=== PATIENT | female | born 1940 | race Caucasian/White ===

== ENCOUNTER → 2017-07-18 | Outpatient (CLI) | payer MEDICARE, BC ==
[~2017-07-18] MED LIST: ALLEGRA D; ATENOLOL; B-12; B-6; CALCIUM; CELEBREX; FLUTICASONE; PREMARIN; SYNTHROID; TESSALON PERLE100 M1; TRAMADOL100 MG; TRIAM/HCTZ; VITAMIN C; Z TRAMADOL HCL; Z.0.GABAPENTIN100 MG PO; Z.0.HYDROXYZINE HCL2 PO; Z.0.LEVOTHYROXINE100; Z.0.VITAMIN D3 1,01 PO; [UNRECOGNIZED DRUG - OTHER]; [UNRECOGNIZED DRUG - OTHER] PO
== END ==
LOC: MRI 10:44
PROVIDERS: ATTEND Family Medicine
DX: M47.816 Spondylosis without myelopathy or radiculopathy, lumbar region (principal)

== ENCOUNTER 2020-02-10 16:02 | Emergency (ER) | payer MEDICARE, BC ==
[~2020-02-10] VITALS: Ht 165.1 cm; Wt 118.8 kg
--- OUTSIDE RECORDS SUMMARY | 2020-02-10 16:26 | XMS REPORT | Continuity of Care Document ---
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 Name Role Phone [employer] Unavailable Un available Problems Problem Status Onset Date Classification Date Reported Comments Source Psoriatic arthritis Active Problem 07/12/2019 Sunil Burns Encounter for drug therapy Act rupinder Diagnosis 0 12/26/2018 Sunil Burns Medications Medication Details Route Status Patient Instructions Ordering Provider Order Date Source Methotrexate 8 tabs Orally Active 2.5mg Orally Once a wee k Amalia 07/23/2018 Sunil Burns Folic Acid 1 tablet Orally Active 1 MG Orally Once a day Amalia 05/02/2018 Sunil Burns Methotrexate 8 tablets all tog ether Orally Active 2.5mg Orally Once a week Amalia 05/02/2018 Sunil Burns Amlodipine Besylate 1 tablet Orally Active 5 MG Orally Once a day Amalia Sunil Burns Tramadol HCl 1 tablet as needed Orally Active 50 MG Orally every 6 hrs Amalia Sunil Burns Meloxicam 1 tablet Orally Active 7.5 MG Orally bid Amalia Kevin Burns Anoro Ellipta 1 puff Inhalation Active 62.5-25 MCG/INH Inhalat ion Once a day Amalia Sunil Burns Losartan Potassium 1 tablet Orally Active 100 MG Orally Once a day Amalia Sunil Burns Mucinex Chest Congestion Child 10 ml as needed Orally Active 100 MG/5ML Orally every 4 hrs Amalia Sunil Burns Lyrica 1 capsule Orally Active 100 MG Orally Three chary es a day Amalia Sunil Burns Otezla 30 mg orally Active 10mg orally bid Amalia Kevin Burns Folic Acid TAKE 1 TABLET BY MO UTH EVERY DAY NA Active 1 MG Amalia Kevin Burns Tizanidine HCl 1 tablet as nee ded Orally Active 4 MG Orally Three times a day Amalia Sunil Burns Triamterene-HCTZ 1 tablet in morning Orally Active 37.5-25 MG Orally Once a day Amalia Sunil Burns Metoprolol Tartrate 1 tablet w ith food Orally Active 25 MG Orally Twice a day Amalia Sunil Burns Pantoprazole Sodium 1 tablet Orally Active 40 MG Orally Once a day Amalia Sunil Burns Nasacort AQ 1 spray in each no stril Nasally Active 55 MCG/ACT Nasally Once a day Amalia Sunil Burns Chlorzoxazone 1 tablet Orally Active 500 MG Orally Three chary es a day Amalia Sunil Burns Levothyroxine Sodium 1 tablet on an empty stomach in the morning Orally Active 150 MCG Orally Once a day Yous af Sunil Burns Montelukast Sodium 1 tablet Orally Active 10 MG Orally Once a day Amalia Sunil Burns Allergies, Adverse Reactions, Alerts Substance Category Reaction Severity Reaction type Status Date Reported Comments Source N.K.D.A. Adverse Reaction Info Not Available Adverse Reaction 09/12/2018 Sunil Burns Immunizations No Data Provided for This Section Results No Data Provided for This Section Pathology Reports No Data Provided for This Section Diagnostic Reports No Data Provided for This Section Consultation Notes No Data Provided for This Section Discharge Summaries No Data Provided for This Section History and Physicals No Data Provided for This Section Vital Signs Vital Sign Value Date Comments Source Weight 254 09/12/2018 Sunil Burns Height 64 0 09/12/2018 Sunil Burns Temperature Oral (F) 99.4 F 09/12/2018 Sunil Burns Heart Rate 76 09/12/2018 Sunil Burns Diastolic (mm Hg) 68 09/12/2018 Sunil Burns Systolic (mm Hg) 140 09/12/2018 Sunil Burns Weight 264.4 06/20/2018 Sunil Nielsener Height 64 0 06/20/2018 Sunil Burns Temperature Oral (F) 98.9 F 06/20/2018 Sunil Burns Heart Rate 74 06/20/2018 Sunil Burns Diastolic (mm Hg) 70 06/20/2018 Sunil Burns Systolic (mm Hg) 130 06/20/2018 Sunil Burns Encounters No Data Provided for This Section Procedures No Data Provided for This Section Assessment and Plan No Data Provided for This Section Plan of Care No Data Provided for This Section Social History No Data Provided for This Section Family History No Data Provided for This Section Advance Directives No Data Provided for This Section Functional Status No Data Provided for This Section
[2020-02-10 16:43] LABS: BASOPHILS # (AUTO) 0.1 (0.0-0.1); BASOPHILS % 0.5 % (0.0-1.0); EOSINOPHILS # (AUTO) 0.3 (0.0-0.4); EOSINOPHILS % 2.1 % (0.0-6.0); HEMATOCRIT 34.1 % (34.2-44.1); HEMOGLOBIN 10.3 g/dL (12.0-16.0); LYMPHOCYTES % 8.5 % (18.0-39.1); MEAN CORPUSCULAR HEMOGLOBIN 28.2 pg (28-32); MEAN CORPUSCULAR HGB CONC 30.2 g/dL (31-35); MEAN CORPUSCULAR VOLUME 93.4 fL (81-99); MONOCYTES # (AUTO) 0.7 (0.2-0.8); MONOCYTES % 5.9 % (4.4-11.3); NEUTROPHILS % 82.7 % (38.7-80.0); PLATELET COUNT 240 x10e3/uL (140-360); RED BLOOD COUNT 3.65 x10e6/uL (3.6-5.1); RED CELL DISTRIBUTION WIDTH 15.8 % (11.7-14.4)
[2020-02-10 16:59] LABS: ALBUMIN 3.2 g/dL (3.5-5.0); ALBUMIN/GLOBULIN RATIO 0.8 (0.8-2.0); ANION GAP 14.7 mmol/L (8-16); CREATININE, SERUM 1.33 mg/dL (0.57-1.11); POTASSIUM 3.7 mmol/L (3.5-5.1)
[2020-02-10 17:05] LABS: CREATINE KINASE MB 3.1 ng/mL (0-5.0)
--- NOTE | 2020-02-10 18:32 | Emergency Department Note ---
History of Present Illnes History of Present Illness Chief Complaint: General Medicine Complaints History of Present Illness This is a 79 year old female reports of feeling shaky for the last 2 days. Patient was recently at [facility] for a heart valve replacement and later was cardioverted for an abnormal heart rhythm. Patient reports she was discharged on 02/07/2020 which was the same day they did the cardioversion. Patient has been on home oxygen since May due to the heart valve leaking. Since the valve replacement her breathing has not improved. Patient's oxygen saturation is 92% on 4L of oxygen via Nasal Cannula.. denies fever and chills, denies cough, denies urinary symptoms denies chest pain . Historian: Patient Arrival Mode: Car Endorsement Clerk Required: No Onset (how long ago): day(s) (2) Location: all over Quality: feels shaky Severity: moderate Onset quality: sudden Duration (how long): day(s) (2) Timing of current episode: constant Progression: unchanged Chronicity: new Context: Reports recent surgery (heart valve replacement 2 weeks ago, cardioversion on 02/07/20) Relieving factors: none Exacerbating factors: none Associated symptoms: Reports shortness of breath (chronic since may) Treatments prior to arrival: none Past Medical/Family History Physician Review I have reviewed the patient's past medical and family history. Any updates have been documented here. 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 Social History Smoking Cessation: Never Smoker Counseling Performed: No Alcohol Use: None Any Illegal Drug Use: No Other Any Pre-Existing Lines (PICC,: No Review of Systems Review of Systems Constitutional: Reports no symptoms EENTM: Reports no symptoms Cardiovascular: Reports no symptoms Respiratory: Reports as per HPI Gastrointestinal: Reports no symptoms Genitourinary: Reports no symptoms Musculoskeletal: Reports no symptoms Integumentary: Reports no symptoms Neurological: Reports as per HPI Psychological: Reports no symptoms Endocrine: Reports no symptoms Hematological/Lymphatic: Reports no symptoms Physical Exam Related Data Allergies: Coded Allergies: codeine (Verified Allergy, NAUSEA, VOMITING, 09/15/11) Triage Vital Signs Vital Signs Date Time Temp Pulse Resp B/P (MAP) Pulse Ox O2 Delivery O2 Flow Rate FiO2 02/10/20 16:10 98.7 70 22 130/70 92 Nasal Cannula 4.0 Vital signs reviewed: Yes Physical Exam CONSTITUTIONAL Constitutional: Present well-developed, Present well-nourished HENT HENT: Present normocephalic, Present atraumatic, Present oropharynx clear/moist, Present nose normal HENT L/R: Present left ext ear normal, Present right ext ear normal EYES Eyes: Reports PERRL, Reports conjunctivae normal NECK Neck: Present ROM normal PULMONARY Pulmonary: Present effort normal, Present other (decreased bs at abase bilateral) CARDIOVASCULAR Cardiovascular: Present regular rhythm, Present heart sounds normal, Present capillary refill normal, Present normal rate GASTROINTESTINAL Abdominal: Present soft, Present nontender, Present bowel sounds normal GENITOURINARY Genitourinary: Present exam deferred SKIN Skin: Present warm, Present dry MUSCULOSKELETAL Musculoskeletal: Present ROM normal NEUROLOGICAL Neurological: Present alert, Present oriented x 3, Present no gross motor or sensory deficits PSYCHOLOGICAL Psychological: Present mood/affect normal, Present judgement normal Results Laboratory Result Diagram: 02/10/20 1615 02/10/20 1615 Laboratory Laboratory Tests Test 02/10/20 16:15 White Blood Count 12.08 x10e3/uL (4.8-10.8) Red Blood Count 3.65 x10e6/uL (3.6-5.1) Hemoglobin 10.3 g/dL (12.0-16.0) Hematocrit 34.1 % (34.2-44.1) Mean Corpuscular Volume 93.4 fL (81-99) Mean Corpuscular Hemoglobin 28.2 pg (28-32) Mean Corpuscular Hemoglobin Concent 30.2 g/dL (31-35) Red Cell Distribution Width 15.8 % (11.7-14.4) Platelet Count 240 x10e3/uL (140-360) Neutrophils (%) (Auto) 82.7 % (38.7-80.0) Lymphocytes (%) (Auto) 8.5 % (18.0-39.1) Monocytes (%) (Auto) 5.9 % (4.4-11.3) Eosinophils (%) (Auto) 2.1 % (0.0-6.0) Basophils (%) (Auto) 0.5 % (0.0-1.0) Neutrophils # (Auto) 10.0 (2.1-6.9) Lymphocytes # (Auto) 1.0 (1.0-3.2) Monocytes # (Auto) 0.7 (0.2-0.8) Eosinophils # (Auto) 0.3 (0.0-0.4) Basophils # (Auto) 0.1 (0.0-0.1) Absolute Immature Granulocyte (auto 0.04 x10e3/uL (0-0.1) Sodium Level 139 mmol/L (136-145) Potassium Level 3.7 mmol/L (3.5-5.1) Chloride Level 99 mmol/L (98-107) Carbon Dioxide Level 29 mmol/L (22-29) Anion Gap 14.7 mmol/L (8-16) Blood Urea Nitrogen 16 mg/dL (7-26) Creatinine 1.33 mg/dL (0.57-1.11) Estimat Glomerular Filtration Rate 38 ML/MIN (60-) BUN/Creatinine Ratio 12 (6-25) Glucose Level 119 mg/dL (74-118) Calcium Level 9.0 mg/dL (8.4-10.2) Total Bilirubin 0.4 mg/dL (0.2-1.2) Aspartate Amino Transf (AST/SGOT) 21 IU/L (5-34) Alanine Aminotransferase (ALT/SGPT) 41 IU/L (0-55) Alkaline Phosphatase 93 IU/L (40-150) Creatine Kinase 103 IU/L (29-168) Creatine Kinase MB 3.10 ng/mL (0-5.0) Troponin I 0.115 ng/mL (0-0.300) Total Protein 7.2 g/dL (6.5-8.1) Albumin 3.2 g/dL (3.5-5.0) Globulin 4.0 g/dL (2.3-3.5) Albumin/Globulin Ratio 0.8 (0.8-2.0) Lab results reviewed: Yes Imaging Imaging results reviewed: Yes Impressions Procedure: [id number] DX/CHEST SINGLE (PORTABLE) Exam Date: 02/10/20 Exam Time: 1726 REPORT STATUS: Signed Examination: Single AP view of the chest. COMPARISON: None. INDICATION: Chest pain. Shortness of breath. DISCUSSION: Lines/tubes: None. Lungs: The lungs are well inflated and clear. Bilateral pulmonary venous congestion and interstitial edema. Bibasilar subsegmental atelectasis. Pleura: There is no pleural effusion or pneumothorax. Heart and mediastinum: Mild enlarged cardiac silhouette. Bones and soft tissues: No acute bony abnormalities. Median sternotomy wires and mediastinal clips. IMPRESSION: 1. Findings suggestive of decompensated CHF will mild bilateral pulmonary edema. Signed by: Dr. Alonzo Hardwick M.D. on 02/10/2020 6:45 PM Dictated By: CHRISTOPH HARDWICK MD, MD 44 Transcribed By: NIKOLAS on 02/10/201844 COPY TO: CHELE SHAIKH DO~ Procedures 12 Lead ECG Interpretation ECG Interpretation : ECG: ECG 1 Endorsement Clerk: Interpreted by ED physician Date: Feb 10, 2020 Time: 18:00 Prior ECG tracings: reviewed Rhythm: sinus rhythm Rate: normal BPM: 70 QRS axis: normal ST segments normal: No (non specific changes) T waves normal: No (non specific changes) Other findings: prolonged QTc interval ( ) Clinical Impression: abnormal ECG Assessment & Plan Medical Decision Making MDM pt feeling shaky for 2 days cbc, cmp, cardiac enzymes, ekg, cxr, ua ordered to eval for uti, electrolyte abnormality, pneumonia, myocardial infarction pt has decompensated chf and requires admission, no beds available at this facility, pt will require transfer for further care i spoke with dr bledsoe( cardiology) and dr poon ( hospitalist) and pt accepted for transfer to [facility] Assessment & Plan Final Impression: (1) CHF (congestive heart failure) (2) Dyspnea (3) Hypoxemia requiring supplemental oxygen Depart Disposition: TRANSFER PENITENTIARY Last Vital Signs Date Time Temp Pulse Resp B/P (MAP) Pulse Ox O2 Delivery O2 Flow Rate FiO2 02/10/20 17:55 98.7 64 22 120/47 92 Nasal Cannula 4.0 Home Meds Reported Medications Hydroxyzine Hcl (Hydroxyzine Hcl) 25 Mg Tablet, 25 MG PO PRN 09/15/11 [Roxana D] No Conflict Check, PRN 09/15/11 [Fluticasone] No Conflict Check, PRN 09/15/11 Chlorzoxazone (Chlorzoxazone) 500 Mg Tablet, 500 MG PO BID 09/15/11 Tramadol Hcl (TRAMADOL) 100 Mg Tbmp.24hr, 50 3-4XD 09/15/11 Tramadol Hcl (TRAMADOL HCL ER) 100 Mg Tab.er.24h 09/15/11 [Triam/Hctz] No Conflict Check 09/15/11 Levothyroxine Sodium (LEVOTHYROXINE SODIUM) 100 Mcg Vial, 0.025 MG DAILY 09/15/11 [Multiple A-Z] No Conflict Check, DAILY 09/15/11 [Calcium] No Conflict Check, DAILY 09/15/11 [Vitamin C] No Conflict Check, DAILY 09/15/11 [B-6] No Conflict Check, 120 MG DAILY 09/15/11 [B-12] No Conflict Check, DAILY 09/15/11 Ca Cmb No.1/Vit D3/B-6/Fa/B12 (Vitamin D3 1,000 Unit Tablet) 1 Each Tablet, 1 EACH PO 09/15/11 [Synthroid] No Conflict Check, 0.125 MG DAILY 09/15/11 [Premarin] No Conflict Check, 0.3 DAILY 09/15/11 [Atenolol] No Conflict Check, 50 MG DAILY 09/15/11 [Celebrex] No Conflict Check, 200 MG DAILY 09/15/11 EDUARDA WITT MD Feb 10, 2020 18:32
[2020-02-10 18:43] LABS: BILIRUBIN,URINE NEGATIVE (NEGATIVE); CLARITY,URINE SL CLOUDY (CLEAR); COLOR,URINE STRAW (YELLOW); KETONES,URINE NEGATIVE (NEGATIVE); LEUKOCYTE ESTERASE ,URINE TRACE (NEGATIVE); NITRITE,URINE NEGATIVE (NEGATIVE); PROTEIN,URINE DIPSTICK NEGATIVE (NEGATIVE); URINE UROBILINOGEN 0.2 mg/dL (0.2 - 1)
--- NOTE | 2020-02-10 18:48 | Diagnostic Imaging Report ---
Examination: Single AP view of the chest. COMPARISON: None. INDICATION: Chest pain. Shortness of breath. DISCUSSION: Lines/tubes: None. Lungs: The lungs are well inflated and clear. Bilateral pulmonary venous congestion and interstitial edema. Bibasilar subsegmental atelectasis. Pleura: There is no pleural effusion or pneumothorax. Heart and mediastinum: Mild enlarged cardiac silhouette. Bones and soft tissues: No acute bony abnormalities. Median sternotomy wires and mediastinal clips. IMPRESSION: 1. Findings suggestive of decompensated CHF will mild bilateral pulmonary edema. Signed by: Dr. Alonzo Tyler M.D. on 02/10/2020 6:45 PM
[2020-02-10 18:59] LABS: BACTERIA,URINE MODERATE /HPF; EPITHELIAL CELLS,URINE MODERATE /LPF; WBC,URINE (MAN) 0-5 /HPF (0-5)
--- NOTE | 2020-02-10 20:26 | NUR ---
SPOKE TO FABIOLA AT [facility]ER [facility]
[2020-02-10] MEDS ORDERED: FUROSEMIDE INJ 10 MG/ML 4 ML VIAL IV ONE (20:45)
[2020-02-10] MEDS ORDERED: FUROSEMIDE INJ 10 MG/ML 4 ML VIAL ONE (20:56)
== END 2020-02-10 22:51 | disposition other institution (70) ==
LOC: ER 16:23
DX: I50.9 Heart failure, unspecified (principal); R06.00 Dyspnea, unspecified; R09.02 Hypoxemia; R94.31 Abnormal electrocardiogram [ECG] [EKG]; Z99.81 Dependence on supplemental oxygen; Z95.2 Presence of prosthetic heart valve; I10 Essential (primary) hypertension; E03.9 Hypothyroidism, unspecified; F41.9 Anxiety disorder, unspecified
CPT/HCPCS: 36415; 71045; 80053; 81001; 82550; 82553; 84484; 85025; 93005; 99284; J1940